=== PATIENT | female | born 1975 | race Caucasian/White ===

== ENCOUNTER 2017-01-09 07:42 | Emergency (ER) | payer MEDICAID ==
[2017-01-09] MEDS ORDERED: FAMOTIDINE 20 MG in NS 100 ML IV ONE (07:46)
[2017-01-09] MEDS ORDERED: HYDROmorphONE/DILAUDID 1 MG/ML SYR IVP ONE (07:46)
[2017-01-09 07:50] VITALS: RESP 18; TEMP 98
--- NOTE | 2017-01-09 07:51 | EDPHY ---
H & P Time Seen by Provider: 01/09/17 07:46 HPI/ROS: HPI Vomiting and diarrhea. 41-year-old female by private vehicle. This patient reports that since Thursday she has had nausea with vomiting and diarrhea. She reports multiple episodes of nonbilious, nonbloody vomiting. She has had watery diarrhea. No bloody or melenic stool. She denies any foreign travel. No camping. No change in diet. No ill contacts. She denies significant abdominal pain. She describes having crampy discomfort in her abdomen intermittently. ROS: Constitutional: No fever, no chills. No weakness. Eyes: No discharge. No changes in vision. ENT: No sore throat. No nasal congestion or rhinorrhea. Respiratory: No cough. No shortness of breath. Cardiac: No chest pain, no palpitations. Gastrointestinal: As above. Genitourinary: No hematuria. No dysuria or increased frequency with urination. Musculoskeletal: No back pain. No neck pain. No myalgias or arthralgias. Skin: No rashes. Neurological: No headache. No focal weakness or altered sensation. Past medical history: Fibromyalgia. Hypertension. Dr. Arriaga is her primary care physician. Social history: Nonsmoker. with children. Here by herself. No alcohol. Physical Exam: General Appearance: Alert, no distress. This patient is responding to questions appropriately and in full sentences. This patient appears well- hydrated and well-nourished. Eyes: Pupils equal and round no pallor or injection. No lid edema, erythema or injection. Respiratory: There are no retractions, lungs are clear to auscultation with good air movement bilaterally. Cardiovascular: Regular rate and rhythm. No murmur. Gastrointestinal: Abdomen is soft and nontender, no masses, bowel sounds normal. No focal tenderness at McBurney's point. No Hernandez sign. Neurological: Motor sensory function is grossly intact. Cranial nerves are normal. Gait is normal. Skin: Warm and dry, no rashes. Musculoskeletal: Neck is supple and nontender. Extremities are symmetrical. All joints range without pain or impingement. Psychiatric: No agitation. No depression. Database: EKG: Imaging: Procedures: Emergency department course: IV placed. She was started on IV normal saline with 1 L to be given over 1 hour. Vital signs reviewed. She was initially given 4 mg of IV Zofran and 20 mg of IV Pepcid. Patient has a benign abdomen. Her presentation is consistent with a viral or food-borne gastroenteritis. 8:35 a.m., patient re-evaluated. Resting comfortably at this time. She states she feels better. She still has some nausea. She was given an additional 4 mg of IV Zofran. 9:10 a.m., patient re-evaluated. Feeling better. Still has some nausea. She was given 6.25 mg of IV Phenergan. Hypokalemia discussed. She was given 20 mEq of IV potassium and started on a 2nd L of IV normal saline. 9:45 a.m., patient also had a small episode of watery diarrhea. She will be given 0.25 mg of IV hydromorphone. 10:20 a.m., patient re-evaluated. Resting comfortably at this time. Taking oral fluids without issue. No further diarrhea. She feels comfortable going home and I feel she is safe for discharge. She will be prescribed oral potassium supplement as well as Zofran for nausea. Repeat abdominal exam she is soft, nontender nondistended. Follow-up and return to emergency department precautions reviewed with her. All of her questions were answered. She was discharged in good condition with her who is driving. Differential Diagnosis: The differential diagnosis on this patient includes but is not limited to viral or food-borne gastroenteritis. Bowel obstruction, appendicitis, pancreatitis, cholecystitis, volvulus, other surgical etiology unlikely. This represents a partial list of diagnoses considered. These considerations are based on history , physical exam, past history, reassessment and diagnostic testing. Smoking Status: Former smoker Constitutional: Initial Vital Signs Temperature (C) 36.6 C 01/09/17 07:49 Heart Rate 102 H 01/09/17 07:49 Respiratory Rate 18 01/09/17 07:49 Blood Pressure 163/103 H 01/09/17 07:49 O2 Sat (%) 97 01/09/17 07:49 O2 Delivery Mode Room Air Allergies/Adverse Reactions: No Known Allergies Allergy (Verified 04/27/15 18:51) Home Medications: Medication Instructions Recorded Hydrochlorothiazide 05/24/11 Hydrocodone/APAP 5/325 [[place] 1 - 2 tab PO Q4PRN PRN #20 tab 03/04/15 5/325 (*)] Multivitamin 07/19/14 Ondansetron Odt [Zofran Odt 4 mg 4 mg PO Q4PRN PRN #10 tab 01/09/17 (*)] Potassium Chloride Po [Klor 20 meq PO QIDMEAL #16 pkt 01/09/17 Packets 20 meq (*)] Medical Decision Making - Data Points Laboratory Results: Laboratory Results 01/09/17 08:05 01/09/17 08:05 Sodium 140 mEq/L mEq/L (134-144) Potassium 2.9 mEq/L L mEq/L (3.5-5.2) Chloride 106 mEq/L mEq/L (97-110) Carbon Dioxide 24 mEq/l mEq/l (22-31) Anion Gap 10 mEq/L mEq/L (8-16) BUN 10 mg/dL mg/dL (7-23) Creatinine 0.6 mg/dL mg/dL (0.6-1.0) Estimated GFR > 60 Glucose 107 mg/dL H mg/dL (70-100) Calcium 9.1 mg/dL mg/dL (8.5-10.4) Medications Given: Potassium Phosphate 10 mmol/ (Dextrose) 253.3333 mls @ 42.222 mls/hr IV EDNOW ONE Stop: 01/09/17 15:07 Last Admin: 01/09/17 09:32 Dose: 253.3333 mls Discontinued Medications Hydromorphone HCl (Dilaudid) 0.25 mg IVP EDNOW ONE Stop: 01/09/17 07:47 Last Admin: 01/09/17 08:07 Dose: 0.25 mg Sodium Chloride (Ns) 1,000 mls @ 0 mls/hr IV EDNOW ONE; Wide Open PRN Reason: Protocol Stop: 01/09/17 07:47 Last Admin: 01/09/17 09:30 Dose: 1,000 mls Famotidine 20 mg/ Sodium (Chloride) 102 mls @ 408 mls/hr IV EDNOW ONE Stop: 01/09/17 08:00 Last Admin: 01/09/17 08:05 Dose: 102 mls Sodium Chloride (Ns) 1,000 mls @ 0 mls/hr IV ONCE ONE PRN Reason: Wide Open Stop: 01/09/17 09:08 Last Admin: 01/09/17 09:31 Dose: 1,000 mls Potassium Chloride (Potassium Cl 10 Meq (Premix)) 100 mls @ 100 mls/hr IV EDNOW ONE Stop: 01/09/17 10:09 Last Admin: 01/09/17 09:30 Dose: 100 mls Ondansetron HCl (Zofran) 4 mg IVP EDNOW ONE Stop: 01/09/17 07:47 Last Admin: 01/09/17 08:40 Dose: 4 mg Ondansetron HCl (Zofran) 4 mg IVP EDNOW ONE Stop: 01/09/17 08:37 Last Admin: 01/09/17 08:40 Dose: 4 mg Potassium Chloride (Potassium Chloride Oral Liquid) 20 meq PO EDNOW ONE Stop: 01/09/17 08:59 Last Admin: 01/09/17 09:46 Dose: Not Given Potassium Chloride (Potassium Chloride Oral Liquid) 20 meq PO EDNOW ONE Stop: 01/09/17 09:01 Last Admin: 01/09/17 09:49 Dose: Not Given Promethazine HCl (Phenergan) 6.25 mg IVP EDNOW ONE Stop: 01/09/17 09:23 Last Admin: 01/09/17 09:29 Dose: 6.25 mg Departure - Departure Disposition: Home, Routine, Self-Care Clinical Impression: Vomiting and diarrhea, Hypokalemia Condition: Good Instructions: Gastroenteritis (ED) Additional Instructions: Read and follow provided instructions. Follow-up with your primary care physician in on Thursday or Thursday of next week for re-evaluation and recheck of your potassium level. Take medication as prescribed for nausea and potassium replacement. Stay hydrated. Drink lots of fluids. A good fluid to drink is Gatorade mixed with water in a 1-1 dilution with ice. Return to the emergency department for vomiting and inability to keep fluids down despite medications, worsening abdominal pain, fever or other serious concerns. Referrals: Michelle Arriaga MD [Primary Care Provider] - As per Instructions Prescriptions: Ondansetron Odt [Zofran Odt 4 mg (*)] 4 mg PO Q4PRN PRN #10 tab PRN Reason: For Nausea & Vomiting Potassium Chloride Po [Klor Packets 20 meq (*)] 20 meq PO QIDMEAL #16 pkt
[2017-01-09] MEDS: NS 1,000 ML IV ONE ×2 (08:06→09:30)
[2017-01-09] MEDS: ONDANSETRON 4 MG/2 ML VIAL IVP ONE ×2 (08:06→08:40)
[2017-01-09] MEDS ORDERED: ONDANSETRON 4 MG/2 ML VIAL IVP ONE (08:36)
[2017-01-09 08:52] LABS: ANION GAP 10 mEq/L (8-16); CALCIUM 9.1 mg/dL (8.5-10.4); CARBON DIOXIDE 24 mEq/l (22-31); CHLORIDE 106 mEq/L (97-110); CREATININE 0.6 mg/dL (0.6-1.0); GLOMERULAR FILTRATION RATE > 60; GLUCOSE 107 mg/dL (70-100); POTASSIUM 2.9 mEq/L (3.5-5.2); SODIUM 140 mEq/L (134-144)
[2017-01-09] MEDS: POTASSIUM CL 20 MEQ/15 ML UDCUP PO ONE ×5 (09:04→09:49)
[2017-01-09] MEDS ORDERED: NS 1,000 ML IV ONE (09:07)
[2017-01-09] MEDS ORDERED: POTASSIUM Cl (KCl) 100 ML IV ONE ×2 (09:10)
[2017-01-09] MEDS ORDERED: PROMETHAZINE HCL 25 MG/ML INJ IVP ONE (09:22)
[2017-01-09] MEDS: K PHOS 10 MMOL in D5W 250 ML IV ONE ×2 (09:32→11:26)
[2017-01-09 10:29] VITALS: BP 130/62; PULSE 74; O2SAT 97
== END 2017-01-09 11:00 | disposition home or self-care (01) ==
LOC: CED 07:42
DX: E87.6 Hypokalemia (principal); I10 Essential (primary) hypertension; Z87.891 Personal history of nicotine dependence
CPT/HCPCS: 80048-PO; 96365; 96366; J1170; J2405; J2550

== ENCOUNTER 2017-09-26 21:22 | Emergency (ER) | payer MEDICAID ==
[2017-09-26] MEDS ORDERED: NS 1,000 ML IV ONE (21:54)
[2017-09-26] MEDS ORDERED: ONDANSETRON 4 MG/2 ML VIAL IVP ONE (21:54)
--- NOTE | 2017-09-26 22:11 | CPEKG ---
Heart Rate: 91 RR Interval: 659 P-R Interval: 180 QRSD Interval: 96 QT Interval: 380 QTC Interval: 468 P [place]: 52 QRS [place]: 97 T Wave [place]: 9 EKG Severity - BORDERLINE ECG - EKG Impression: SINUS RHYTHM EKG Impression: BORDERLINE RIGHT AXIS DEVIATION EKG Impression: BORDERLINE INFERIOR Q WAVES Electronically Signed By: Ramses Shea 28-Sep-2017 08:58:27
[2017-09-26 22:44] LABS: PLATELET COUNT 343 10^3/uL (150-400)
--- NOTE | 2017-09-26 22:48 | EDPHY ---
H & P Stated Complaint: Generalized unwell, nausea for 2 days. Time Seen by Provider: 09/26/17 21:29 HPI/ROS: 39-year-old female who takes hydrochlorothiazide for hypertension presents complaining nausea, no vomiting however occasional dry heaves, 3 episodes of diarrhea today and sensation of her heart racing. She states this has happened to her multiple times before and always turns out to be a low potassium for which she gets were placed and then takes potassium for several days and is fine for the next 6 months. She denies pain, no chest pain, no shortness of breath. Review of systems As per HPI General no fever no chills no weakness HEENT no eye pain no eye discharge. No eye redness, no sore throat Respiratory no cough, no shortness of breath Cardiac no chest pain, no peripheral edema, positive palpitations GI no abdominal pain, positive diarrhea, no constipation, positive nausea , no vomiting no flank pain, no hematuria, no dysuria Musculoskeletal no myalgias, no joint pain Heme no easy bruising, no easy bleeding Endo no polyuria, no polydipsia Skin no rashes, no pruritus Neuro no syncope, no dizziness, no headaches Psych is no suicidal ideation, no homicidal ideation Source: Patient Exam Limitations: No limitations - Personal History Current Tetanus/Diphtheria Vaccine: Unsure Current Tetanus Diphtheria and Acellular Pertussis (TDAP): Unsure - Medical/Surgical History Hx Asthma: No Hx Chronic Respiratory Disease: No Hx Diabetes: No Hx Cardiac Disease: Yes Hx Renal Disease: No Hx Cirrhosis: No Hx Alcoholism: No Hx HIV/AIDS: No Hx Splenectomy or Spleen Trauma: No Other PMH: TERRIE, FIBROMYALGIA, HYST, C-Sections x 2,HTN. - Family History Significant Family History: No pertinent family hx - Social History Smoking Status: Former smoker Alcohol Use: None Drug Use: None - Physical Exam Exam: 41-year-old female alert and oriented no acute distress nontoxic appearance afebrile HEENT atraumatic normocephalic, extraocular muscles intact, anicteric Oropharynx negative for erythema negative exudate, tolerating her own secretions Neck supple no meningismus Lungs clear to auscultation bilaterally Heart regular rate and rhythm without murmur rub or gallop Abdomen nondistended normoactive bowel sounds soft nontender Back no CVA tenderness, no step-offs, no spinal tenderness Extremities no cyanosis clubbing or edema Neuro alert and oriented, no focal deficits Constitutional: Initial Vital Signs Temperature (C) 36.6 C 09/26/17 21:37 Heart Rate 101 H 09/26/17 21:37 Respiratory Rate 16 09/26/17 21:37 Blood Pressure 143/98 H 09/26/17 21:37 O2 Sat (%) 96 09/26/17 21:37 O2 Delivery Mode Room Air Allergies/Adverse Reactions: No Known Allergies Allergy (Verified 09/26/17 21:36) Home Medications: Medication Instructions Recorded Hydrochlorothiazide 05/24/11 Hydrocodone/APAP 5/325 [[place] 1 - 2 tab PO Q4PRN PRN #20 tab 07/19/14 5/325 (*)] Multivitamin 07/19/14 Potassium Chloride 20 meq PO DAILY #22 tablet.er 09/26/17 Medical Decision Making ED Course/Re-evaluation: Patient seen and evaluated for multiple symptoms which she associates with low potassium and her laboratory did in fact show a potassium of 2.6 The she was given IV fluids and ondansetron 4 mg with marked relief of her nausea and was offered IV potassium given her low level which she refused the IV potassium and would prefer to take p.o. Potassium Impression Hypokalemia likely secondary to hydrochlorothiazide use Plan Potassium 40 mEq p.o. Now Potassium 40 mEq p.o. Three times daily x3 days A then potassium 20 mEq p.o. Twice daily x3 days An potassium 20 mEq p. O. Daily x1 week Follow-up with PCP for repeat potassium level in the next 1-2 weeks Differential Diagnosis: Differential diagnosis considered but not limited to Gastritis, diarrhea, enteritis, low potassium, high potassium, arrhythmia - Data Points Laboratory Results: Laboratory Results 09/26/17 22:35 09/26/17 22:35 09/26/17 09/26/17 22:35 22:35 WBC 7.75 10^3/uL 10^3/uL (3.80-9.50) RBC 5.14 10^6/uL 10^6/uL (4.18-5.33) Hgb 15.3 g/dL g/dL (12.6-16.3) Hct 42.3 % % (38.0-47.0) MCV 82.3 fL fL (81.5-99.8) MCH 29.8 pg pg (27.9-34.1) MCHC 36.2 g/dL g/dL (32.4-36.7) RDW 12.2 % % (11.5-15.2) Plt Count 343 10^3/uL 10^3/uL (150-400) MPV 9.6 fL fL (8.7-11.7) Neut % (Auto) 56.9 % % (39.3-74.2) Lymph % (Auto) 32.6 % % (15.0-45.0) [place] % (Auto) 8.0 % % (4.5-13.0) Eos % (Auto) 1.4 % % (0.6-7.6) Baso % (Auto) 0.8 % % (0.3-1.7) Nucleat RBC Rel Count 0.0 % % (0.0-0.2) Absolute Neuts (auto) 4.41 10^3/uL 10^3/uL (1.70-6.50) Absolute Lymphs (auto) 2.53 10^3/uL 10^3/uL (1.00-3.00) Absolute Monos (auto) 0.62 10^3/uL 10^3/uL (0.30-0.80) Absolute Eos (auto) 0.11 10^3/uL 10^3/uL (0.03-0.40) Absolute Basos (auto) 0.06 10^3/uL 10^3/uL (0.02-0.10) Absolute Nucleated RBC 0.00 10^3/uL 10^3/uL (0-0.01) Immature Gran % 0.3 % % (0.0-1.1) Immature Gran # 0.02 10^3/uL 10^3/uL (0.00-0.10) Sodium 136 mEq/L mEq/L (135-145) Potassium 2.6 mEq/L L* mEq/L (3.5-5.2) Chloride 98 mEq/L mEq/L (97-110) Carbon Dioxide 24 mEq/l mEq/l (22-31) Anion Gap 14 mEq/L mEq/L (8-16) BUN 11 mg/dL mg/dL (7-23) Creatinine 0.6 mg/dL mg/dL (0.6-1.0) Estimated GFR > 60 Glucose 122 mg/dL H mg/dL (70-100) Calcium 10.2 mg/dL mg/dL (8.5-10.4) TSH 4.820 uIU/mL H uIU/mL (0.465-4.680) Medications Given: Discontinued Medications Sodium Chloride (Ns) 1,000 mls @ 0 mls/hr IV ONCE ONE PRN Reason: Wide Open Stop: 09/26/17 21:55 Last Admin: 09/26/17 22:44 Dose: 1,000 mls Ondansetron HCl (Zofran) 4 mg IVP EDNOW ONE Stop: 09/26/17 21:55 Last Admin: 09/26/17 22:35 Dose: 4 mg Ondansetron HCl (Zofran Odt 4 Mg Prepack#2) 1 btl TAKEHOME EDNOW ONE Stop: 09/26/17 23:15 Last Admin: 09/26/17 23:25 Dose: 1 btl Potassium Chloride (Klor-Con) 40 meq PO ONCE ONE Stop: 09/26/17 23:11 Last Admin: 09/26/17 23:15 Dose: 40 meq Departure - Departure Disposition: Home, Routine, Self-Care Clinical Impression: Hypokalemia Condition: Good Instructions: Hypokalemia (ED) Referrals: Patient,NotPresent [Primary Care Provider] - As per Instructions Prescriptions: Potassium Chloride 20 meq PO DAILY #22 tablet.er
[2017-09-26] MEDS ORDERED: POTASSIUM Cl (KCl) 100 ML IV ONE (23:00)
[2017-09-26] MEDS ORDERED: POTASSIUM Cl (KCl) 10 MEQ/100 ML BAG IV ONE (23:07)
[2017-09-26] MEDS ORDERED: POTASSIUM CL 20 MEQ TAB PO ONE (23:10)
[2017-09-26] MEDS ORDERED: ONDANSETRON 4MG PREPACK#2 BTL TAKEHOME ONE (23:14)
[2017-09-26 23:53] VITALS: BP 144/100
== END 2017-09-26 23:50 | disposition home or self-care (01) ==
LOC: CED 21:22
DX: E87.6 Hypokalemia (principal); E86.9 Volume depletion, unspecified; I10 Essential (primary) hypertension; Z87.891 Personal history of nicotine dependence
CPT/HCPCS: 80048-PO; 84443-PO; 85025-PO; 96374; J2405; J3480

== ENCOUNTER 2017-11-08 20:55 | Emergency (ER) | payer MEDICAID ==
[2017-11-08] MEDS ORDERED: ONDANSETRON DISINTEGRATING 4 MG TAB PO ONE (21:16)
--- NOTE | 2017-11-08 21:21 | CPEKG ---
Heart Rate: 81 RR Interval: 741 P-R Interval: 184 QRSD Interval: 94 QT Interval: 380 QTC Interval: 441 P [place]: 56 QRS [place]: 56 T Wave [place]: 6 EKG Severity - BORDERLINE ECG - EKG Impression: SINUS RHYTHM EKG Impression: BORDERLINE T ABNORMALITIES, ANTERIOR LEADS Electronically Signed By: Dax Lizarraga 08-Nov-2017 23:03:40
--- NOTE | 2017-11-08 21:21 | EDPHY ---
H & P Stated Complaint: Bilateral arm/feet numbness/tingling x 3 hours with neck tightness. Time Seen by Provider: 11/08/17 21:03 HPI/ROS: This patient complains of bilateral hand and feet tingling extend into her arms and legs over the past few hours. She has had these symptoms intermittently since stopping hydrochlorothiazide starting clonidine 0.1 mg twice daily 2 weeks ago. The hydrochlorothiazide used to treat her hypertension was stopped due to recurrent episodes of hypokalemia while taking that medication. She had 4 episodes of hypokalemia that responded to oral potassium replacement over 1 week periods but given this issue medication change was made. She is concerned that she may have low potassium again as the symptoms are reminiscent of her prior episodes of hypokalemia. She also reports episode of lightheadedness intermittently over the past 2 weeks. Finally, she reports diarrhea 4 episodes a day also for the past 2 weeks. She had a headache described as right parietal and occipital that started this morning and was moderate intensity achy in nature associated with intermittent"blotchy vision". That headache resolved at 5:30 a.m. Tonight without intervention but it occasional"blotchy vision"persists when she looks at lytes. She had migraines as an adolescent but none since she was 17 years old. While she had some ocular symptoms with her migraines as a teen those ocular symptoms are different than the current "blotchy vision"per her report. She came in by private vehicle with her daughter for further evaluation of the symptoms tonight. ROS: Constitutional: No fevers or chills. No fatigue. HEENT: No URI symptoms. No tinnitus or change in her hearing. No head trauma recently. Pulmonary: No dyspnea. Neuro: She reports a in tingling but no sheyla numbness. No focal weakness. No confusion. Psychiatric: She admits some tearfulness when if she is off of her estradiol patches but denies any sheyla depressive send Tums and denies any anxiety this time. GI: She has had dry heaves today but not actual vomiting. She has persistent nausea. No bloody stools. No hematemesis. Abdominal pain. : No urinary symptoms. No flank pain. Integumentary: No skin rash. No diaphoresis. Complete review of symptoms otherwise negative. Source: Patient Exam Limitations: No limitations - Personal History LMP (Females 10-55): Post Menopausal Current Tetanus Diphtheria and Acellular Pertussis (TDAP): Yes - Medical/Surgical History Hx Asthma: No Hx Chronic Respiratory Disease: No Hx Diabetes: No Hx Cardiac Disease: Yes Hx Renal Disease: No Hx Cirrhosis: No Hx Alcoholism: No Hx HIV/AIDS: No Hx Splenectomy or Spleen Trauma: No Other PMH: TERRIE, FIBROMYALGIA, HYST, C-Sections x 2,HTN. - Family History Significant Family History: No pertinent family hx - Social History Smoking Status: Former smoker Alcohol Use: None Additional Social History: The patient was using able marijuana until 2 weeks ago when she stopped the marijuana. She is also not smoking marijuana using any other recreational drugs. No recent foreign travel. No recent fish ingestion. No other suspect food ingestion in terms of potential food poisoning. - Physical Exam Exam: General Appearance: Alert, no distress. Eyes: Pupils equal and round no pallor or injection. ENT, Mouth: Mucous membranes moist. Respiratory: There are no retractions, lungs are clear to auscultation. Cardiovascular: Regular rate and rhythm. No murmur gallop rub. No peripheral edema. Gastrointestinal: Abdomen is soft and nontender, no masses, bowel sounds normal. Neurological: GCS 15. Cranial nerves 2-12 intact. [place] sign is negative. She maintains normal light touch sensory exam throughout all extremities and 5/ 5 strength throughout all extremities. No focal deficits are appreciated. Skin: Warm and dry, no rashes. Musculoskeletal: Neck is supple nontender. Extremities are symmetrical, full range of motion. Psychiatric: Mood and affect are normal DIFFERENTIAL DIAGNOSIS: After history and physical exam differential diagnosis was considered for hyperkalemia, anxiety, medication side-effect, hyponatremia, migraine Constitutional: Initial Vital Signs Temperature (C) 36.6 C 11/08/17 21:04 Heart Rate 85 11/08/17 21:04 Respiratory Rate 18 11/08/17 21:04 Blood Pressure 133/104 H 11/08/17 21:04 O2 Sat (%) 98 11/08/17 21:04 O2 Delivery Mode Room Air Allergies/Adverse Reactions: No Known Allergies Allergy (Verified 11/08/17 21:02) Home Medications: Medication Instructions Recorded Ergocalciferol (Vitamin D2) 11/08/17 [Vitamin D2] Estradiol [Estraderm 0.05 MG] 11/08/17 Lisinopril 10 mg PO DAILY #30 tablet 11/08/17 Ondansetron Odt [Zofran Odt] 4 - 8 mg PO Q4PRN PRN #4 tab 11/08/17 Potassium Cl [Klor-Con 20 meq (*)] 40 meq PO TID #25 tab 11/08/17 Tumeric 11/08/17 clonIDINE [Catapres (*)] 11/08/17 Medical Decision Making - Diagnostics EKG Interpretation: 12 lead EKG performed at 9:19 p.m. Indication paresthesias, history of hypokalemia evaluate for evidence of hypokalemia 12 lead EKG at a sinus rhythm rate of 81 intervals: Normal throughout [place]: P of 56, QRS of 56, T of 6 ST segments notable for low T-wave amplitude particularly in the anterior leads consistent with hypokalemia. Overall assessment sinus rhythm with low T-wave amplitude consistent with hyperkalemia by my interpretation ED Course/Re-evaluation: Given the option of IV versus oral medications initially, patient prefers to have phlebotomy with oral medications. Zofran sublingual with resolution of nausea and vomiting. Phlebo. with basic met panel pending-met panel reveals a potassium 2.7. The rest of the basic metabolic panel is normal. Imodium for diarrhea p.o. Potassium 40 mEq p.o. After review of labs Met panel is normal except for a low potassium of 2.7. Counseled patient regarding this. She is given oral potassium 40 mEq p. O. With plan to replenish her potassium orally, control her diarrhea with Imodium, and decrease her clonidine dose in the evening initially while adding on lisinopril to help control blood pressure on lower clonidine dose. Her loose stools may be attributable in part to her current clonidine. I think that her diarrhea is the cause of her hypokalemia currently. While she has hyperkalemia, no dysrhythmia or palpitations. I think that she is safe for discharge home on oral potassium. Counseled patient regarding all this in some detail. Answered all her questions prior to discharge home. She will follow up with primary care physician for recheck BP and recheck potassium in 5-7 days. - Data Points Medications Given: Discontinued Medications Loperamide HCl ( Imodium) 4 mg PO EDNOW ONE Stop: 11/08/17 21:58 Last Admin: 11/08/17 22:00 Dose: 4 mg Ondansetron HCl (Zofran Odt) 8 mg PO EDNOW ONE Stop: 11/08/17 21:17 Last Admin: 11/08/17 21:26 Dose: 8 mg Potassium Chloride (Potassium Chloride Oral Liquid) 40 meq PO EDNOW ONE Stop: 11/08/17 21:48 Last Admin: 11/08/17 21:57 Dose: 40 meq Point of Care Test Results: Chemistry 11/08/17 21:32 POC Sodium 140 mEq/L mEq/L (135-145) POC Potassium 2.7 mEq/L L* mEq/L (3.3-5.0) POC Chloride 105.0 mEq/L mEq/L (97-110) POC Total CO2 23 mEq/L mEq/L (22-31) POC BUN 7 mg/dL mg/dL (7-23) POC Creatinine 0.8 mg/dL mg/dL (0.6-1.0) POC Glucose 113 mg/dL H mg/dL (70-100) POC Calcium 9.9 mg/dL mg/dL (8.5-10.4) Departure - Departure Disposition: Home, Routine, Self-Care Clinical Impression: Hypokalemia, Diarrhea, Hypertension Condition: Good Instructions: Lisinopril (By mouth), Potassium Chloride (By mouth), Hypokalemia (ED), Acute Diarrhea (ED) Additional Instructions: Diagnoses: 1. Hyperkalemia 2. Diarrhea 3. Hypertension Some of your symptoms may be attributable to the clonidine. Let us decrease her dose and starchy aunt additional antihypertensive medication. Plan: Take potassium as prescribed Cut year morning clonidine dosed is to 0 0.05-half of the 0.1 mg tablet. Continue the 0.1 mg tablet night for the next 5 days or so and then try cutting that down to half tablet as well. At the same time, start lisinopril 10 mg tabs daily. Take [id number] Imodium to help control diarrhea. Diarrhea can cause low potassium. Zofran if needed for nausea or vomiting. Follow-up with primary care physician for a recheck of blood pressure and potassium in 5 days or so Return emergency department for any significant worsening of symptoms despite treatment plan. Referrals: Michelle Arriaga MD [Primary Care Provider] - As per Instructions Prescriptions: Lisinopril 10 mg PO DAILY #30 tablet Ondansetron Odt [Zofran Odt] 4 - 8 mg PO Q4PRN PRN #4 tab PRN Reason: Vomiting Potassium Cl [Klor-Con 20 meq (*)] 40 meq PO TID #25 tab
[2017-11-08] MEDS ORDERED: POTASSIUM CL 20 MEQ/15 ML UDCUP PO ONE (21:47)
[2017-11-08] MEDS ORDERED: POTASSIUM CL 20 MEQ/15 ML UDCUP ONE (21:55)
[2017-11-08] MEDS ORDERED: LOPERAMIDE HCL 2 MG CAP PO ONE (21:57)
[2017-11-08 22:09] VITALS: BP 125/89
== END 2017-11-08 22:15 | disposition home or self-care (01) ==
LOC: CED 20:55
DX: E87.6 Hypokalemia (principal); I10 Essential (primary) hypertension; R19.7 Diarrhea, unspecified; Z87.891 Personal history of nicotine dependence
CPT/HCPCS: 80048-PO

== ENCOUNTER 2017-11-12 16:24 | Emergency (ER) | payer MEDICAID ==
--- NOTE | 2017-11-12 16:44 | CPEKG ---
Heart Rate: 105 RR Interval: 571 P-R Interval: 180 QRSD Interval: 82 QT Interval: 328 QTC Interval: 434 P [place]: 46 QRS [place]: 86 T Wave [place]: -6 EKG Severity - ABNORMAL ECG - EKG Impression: SINUS TACHYCARDIA EKG Impression: NONSPECIFIC T ABNORMALITIES, INFERIOR LEADS Electronically Signed By: Dax Lizarraga 12-Nov-2017 18:29:04
[2017-11-12] MEDS ORDERED: MAG HYDROX/AL HYDROX/SIMETH 30 ML UDCUP PO ONE (16:51)
[2017-11-12] MEDS ORDERED: ACETAMINOPHEN 500 MG TAB PO ONE (16:55)
--- NOTE | 2017-11-12 17:06 | EDPHY ---
H & P Stated Complaint: left arm jaw neck tingling Time Seen by Provider: 11/12/17 16:35 HPI/ROS: This patient presents with substernal chest pain achy in nature 8/10 intensity radiating to the left arm, onset after a nap at 3:05 p.m. Today and steady since. I saw her 4 days prior to this visit with hypokalemia-potassium of 2.7 attributable to diarrhea. Started her on aggressive oral potassium replacement with tablets. She reports that she took a 40 mEq dose after having soup and a glass of water shortly prior to lying down for a nap. She also notes that she has been belching a lot since starting the potassium replacement. She notes no other associated symptoms today except for nausea that responded well to a sublingual Zofran that she took -4 mg prior to arrival. No nausea currently. No exacerbating factors are noted for her chest pain. She does note associated right-sided headache similar to previous headaches throbbing in nature and 6/10 intensity. She is anxious from the symptoms and a bit tearful on arrival. She has associated paresthesias in bilateral legs and arms. The patient reports compliance with the potassium replacement plan as well as change in medications- we decreased her evening clonidine dose 2.0 5 mg. She continues 0.1 mg in the morning. I added lisinopril 10 mg which she has been taking and she reports good blood pressure control 120s over 70s until today when she checked at home with her new symptoms of chest pain-155/119. She takes the lisinopril dose in the evening. She made an appointment to see her primary care physician for follow-up for next Thursday -8 days from now. Her daughter drove her in by private vehicle for evaluation. ROS: Constitutional: No fevers or generalized fatigue. HEENT: No URI symptoms or other complaints Neuro: Right-sided headache as per HPI. No visual changes. No focal numbness or weakness. Pulmonary: No dyspnea. No coughing Cardiovascular: No heart palpitations or lightheadedness. No leg swelling or calf pain. GI: Nausea but no vomiting. Increased belching this week. She has persistent diarrhea 3 or 4 episodes a day. She is using Imodium periodically with slight improvement. : No urinary symptoms or flank pain. No hematuria. Integumentary: No diaphoresis or rash. Endocrine: No complaints new line completely symptoms otherwise negative. Source: Patient Exam Limitations: No limitations - Personal History LMP (Females 10-55): Hysterectomy Current Tetanus Diphtheria and Acellular Pertussis (TDAP): Yes - Medical/Surgical History PMH: Essential hypertension Hx Asthma: No Hx Chronic Respiratory Disease: No Hx Diabetes: No Hx Cardiac Disease: Yes Hx Renal Disease: No Hx Cirrhosis: No Hx Alcoholism: No Hx HIV/AIDS: No Hx Splenectomy or Spleen Trauma: No Other PMH: TERRIE, FIBROMYALGIA, HYST, C-Sections x 2,HTN - Family History Significant Family History: Other (Her father of an intracranial aneurysm at age 47) - Social History Smoking Status: Former smoker Alcohol Use: None Drug Use: None - Physical Exam Exam: General Appearance: Alert, no distress. Eyes: Pupils equal and round no pallor or injection. ENT, Mouth: Mucous membranes moist. Respiratory: There are no retractions, lungs are clear to auscultation. Cardiovascular: Tachycardic with no murmur gallop rub. No leg edema or tenderness. Gastrointestinal: Abdomen is soft and nontender, no masses, bowel sounds normal. Neurological: GCS 15. No focal deficits. Skin: Warm and dry, no rashes. Musculoskeletal: Neck is supple nontender. Extremities are symmetrical, full range of motion. Psychiatric: Mood and affect are normal DIFFERENTIAL DIAGNOSIS: After history and physical exam differential diagnosis was considered for esophagitis, GERD, esophageal spasm, doubt cardiac ischemic disease. Doubt PE. Pneumothorax, pneumonia Constitutional: Initial Vital Signs Temperature (C) 36.8 C 11/12/17 16:30 Heart Rate 111 H 11/12/17 16:30 Respiratory Rate 16 11/12/17 16:30 Blood Pressure 141/111 H 11/12/17 16:30 O2 Sat (%) 99 11/12/17 16:30 O2 Delivery Mode Room Air Allergies/Adverse Reactions: No Known Allergies Allergy (Verified 11/12/17 16:33) Home Medications: Medication Instructions Recorded Ergocalciferol (Vitamin D2) 11/08/17 [Vitamin D2] Estradiol [Estraderm 0.05 MG] 11/08/17 Lisinopril 10 mg PO DAILY #30 tablet 11/08/17 Ondansetron Odt [Zofran Odt] 4 - 8 mg PO Q4PRN PRN #4 tab 11/08/17 Potassium Cl [Klor-Con 20 meq (*)] 40 meq PO TID #25 tab 11/08/17 Tumeric 11/08/17 clonIDINE [Catapres (*)] 11/08/17 Famotidine [Pepcid] 40 mg PO DAILY #14 tablet 11/12/17 Potassium Chloride Po [Potassium 40 meq PO BID #19 udcup 11/12/17 Chloride 20 mg/15 ml (*)] Medical Decision Making - Diagnostics EKG Interpretation: 12 lead EKG performed at 4:42 p.m. Indication chest pain and history of hyperkalemia rule out ischemic cardiac disease or evidence of hyperkalemia Sinus tachycardia 105 Intervals: Normal throughout [place]: Normal throughout ST segments: Flat T-wave in AVF and isolated T inversion in V3-no significant change from prior EKG dated 11/08/2017 by my interpretation Overall assessment sinus tachycardia with nonspecific T-wave abnormalities Imaging Results: Imaging Impressions Chest X-Ray 11/12/17 17:08 Impression: Negative chest. Two view chest x-ray: Normal by my interpretation Imaging: I viewed and interpreted images myself ED Course/Re-evaluation: Monitor, Maalox p.o. Tylenol for headache Levsin sublingual for possible esophageal spasm labs drawn and sent At 5:45 p.m. The patient reports that her chest pain is nearly resolved down to 1 or 2/10. She feels improved. She is drinking p.o. Water and resting comfortably. She has no dyspnea, no pleuritic pain and feels well. Studies: Basic metabolic panel reveals mildly low bicarb at 18. Potassium today is normal 4.1 as are the rest of the electrolytes, BUN and creatinine. Troponin is normal. Recheck blood pressure-120s over 90s Discussion: This patient presents with chest pain in the setting of taking large oral potassium doses by solid pills. She took 1 of these doses shortly prior to laying down for a nap. She has noticed increased belching since starting this regimen and I suspect that she had an element of gastritis, reflux potential esophagitis or esophageal spasm that caused her symptoms today. She has had near complete resolution of her symptoms with Maalox and Levsin. No red flag findings that would suggest cardiac ischemia, pulmonary embolism or other symptoms. Will plan to the switch her from potassium solid tabs to liquid potassium. Given persistent findings an EKG that suggest subtle hypokalemic findings as suspect she still low and intracellular potassium in her body counseled regarding this. That she warrants completing the potassium supplementation. She still has diarrhea that may be attributable in part to the clonidine. Will further decrease her dose to half tablet 2 times a day with plan to increase her lisinopril started 4 days ago to 20 mg a day. Will also place her on Pepcid and Maalox. She will follow up with primary care physician for further evaluation. She understands need to return emergency department should she develop worsening of symptoms despite the treatment plan - Data Points Laboratory Results: 11/12/17 11/12/17 17:09 16:58 POC Sodium 141 mEq/L mEq/L (135-145) POC Potassium 4.1 mEq/L mEq/L (3.3-5.0) POC Chloride 106.0 mEq/L mEq/L (97-110) POC Total CO2 18 mEq/L L mEq/L (22-31) POC BUN 9 mg/dL mg/dL (7-23) POC Creatinine 0.9 mg/dL mg/dL (0.6-1.0) POC Glucose 125 mg/dL H mg/dL (70-100) POC Calcium 10.6 mg/dL H mg/dL (8.5-10.4) POC Troponin I 0.00 ng/mL ng/mL (0.00-0.08) Medications Given: Discontinued Medications Acetaminophen (Tylenol) 1,000 mg PO EDNOW ONE Stop: 11/12/17 16:56 Last Admin: 11/12/17 17:03 Dose: 1,000 mg Al Hydroxide/Mg Hydroxide (Maalox Susp) 30 ml PO EDNOW ONE Stop: 11/12/17 16:52 Last Admin: 11/12/17 17:02 Dose: 30 ml Hyoscyamine Sulfate (Levsin, Hyomax-Sl) 0.125 mg PO EDNOW ONE Stop: 11/12/17 17:11 Last Admin: 11/12/17 17:26 Dose: 0.125 mg Point of Care Test Results: Chemistry 11/12/17 11/12/17 17:09 16:58 POC Sodium 141 mEq/L mEq/L (135-145) POC Potassium 4.1 mEq/L mEq/L (3.3-5.0) POC Chloride 106.0 mEq/L mEq/L (97-110) POC Total CO2 18 mEq/L L mEq/L (22-31) POC BUN 9 mg/dL mg/dL (7-23) POC Creatinine 0.9 mg/dL mg/dL (0.6-1.0) POC Glucose 125 mg/dL H mg/dL (70-100) POC Calcium 10.6 mg/dL H mg/dL (8.5-10.4) POC Troponin I 0.00 ng/mL ng/mL (0.00-0.08) Departure - Departure Disposition: Home, Routine, Self-Care Clinical Impression: Chest pain Qualifiers: Chest pain type: unspecified Qualified Code(s): R07.9 - Chest pain, unspecified Hypertension Qualifiers: Hypertension type: essential hypertension Qualified Code(s): I10 - Essential ( primary) hypertension Condition: Fair Instructions: Chest Pain (ED), Gastroesophageal Reflux Disease (ED) Additional Instructions: Diagnosis: Chest pain Intake it is likely that the oral potassium pills were causing some irritation in your stomach and esophagus and that he may have had a esophageal spasm causing her pain today. Your EKG and heart enzyme showed no significant abnormalities today and her current circulating potassium level is normal that he still warrant further potassium treatment to build up the potassium inside or cells in her body. Plan: Switch from the potassium pills to the liquid potassium as prescribed. Increase your lisinopril dose to 20 mg in the evening. Decreased you're clonidine dose to half tab-0.05 mg 2 times a day Start Pepcid and acid as prescribed for the next couple weeks. Have a bland diet until symptoms improve Eat food prior to the potassium and then drink water after the potassium Use Maalox in addition if needed if he developed upper belly or chest pain. Return emergency department for any significant worsening despite the treatment plan, follow up with primary care physician for recheck sometime within the next week if possible. Referrals: Eriberto Maier MD [Primary Care Provider] - As per Instructions Prescriptions: Famotidine [Pepcid] 40 mg PO DAILY #14 tablet Potassium Chloride Po [Potassium Chloride 20 mg/15 ml (*)] 40 meq PO BID #19 udcup
[2017-11-12] MEDS ORDERED: HYOSCYAMINE SULFATE 0.125 MG TAB PO ONE (17:10)
--- NOTE | 2017-11-12 17:19 | CPEKG ---
Heart Rate: 78 RR Interval: 769 P-R Interval: 136 QRSD Interval: 80 QT Interval: 380 QTC Interval: 433 P [place]: 76 QRS [place]: 16 T Wave [place]: 28 EKG Severity - BORDERLINE ECG - EKG Impression: SINUS RHYTHM EKG Impression: TALL R WAVE IN V2, CONSIDER RVH OR PMI Electronically Signed By: Akil Dean 13-Nov-2017 08:45:56
[2017-11-12 18:19] VITALS: BP 122/85
== END 2017-11-12 18:19 | disposition home or self-care (01) ==
LOC: CED 16:24
DX: R07.9 Chest pain, unspecified (principal); I10 Essential (primary) hypertension; Z87.891 Personal history of nicotine dependence
CPT/HCPCS: 71046-PO; 80048-PO; 84484-PO

== ENCOUNTER 2018-08-18 07:37 | Emergency (ER) | payer MEDICAID ==
[2018-08-18] MEDS ORDERED: ONDANSETRON 4 MG/2 ML VIAL IVP ONE (08:02)
[2018-08-18] MEDS ORDERED: NS 1,000 ML IV ONE ×2 (08:02→09:20)
[2018-08-18] MEDS ORDERED: KETOROLAC 30 MG/1 ML SDV IVP ONE (08:05)
--- NOTE | 2018-08-18 08:05 | EDPHY ---
H & P Stated Complaint: Vomiting since 1500 yest , every 1.5h Time Seen by Provider: 08/18/18 07:58 HPI/ROS: CHIEF COMPLAINT: Nausea vomiting HISTORY OF PRESENT ILLNESS: The patient is a 42-year-old female with history of fibromyalgia, hysterectomy and cholecystectomy who comes to the emergency department complaining of nausea vomiting and abdominal cramping that began yesterday evening. She correlates the onset of her symptoms with her nephew using there smoker to smoke meat. She states that it was more smoky than usual. It is outdoors. No on else felt sick. The carbon monoxide detector did not alarm. The she has been vomiting every hour since then. No diarrhea. No fever. No rash. No chest pain or difficulty breathing. She states that her vomit is nonbloody and smells like smoke. No back pain or CVA pain. No dysuria or hematuria. Severity: Moderate Modifying factors: None, she has not taken any medication REVIEW OF SYSTEMS: Constitutional: denies: chills, fever, recent illness, recent injury EENTM: denies: blurred vision, double vision, nose congestion Respiratory: denies: cough, shortness of breath Cardiac: denies: chest pain, irregular heart rate, lightheadedness, palpitations Gastrointestinal/Abdominal: See HPI Genitourinary: denies: dysuria, frequency, hematuria, pain Musculoskeletal: denies: joint pain, muscle pain Skin: denies: lesions, rash, jaundice, bruising Neurological: denies: headache, numbness, paresthesia, tingling, dizziness, weakness Hematologic/Lymphatic: denies: blood clots, easy bleeding, easy bruising Immunologic/allergic: denies: HIV/AIDS, transplant 10 systems reviewed and negative except as noted EXAM: GENERAL: Well-appearing, well-nourished and in no acute distress. HEAD: Atraumatic, normocephalic. EYES: Pupils equal round and reactive to light, extraocular movements intact, sclera anicteric, conjunctiva are normal. ENT: TMs normal, nares patent, oropharynx clear without exudates. Moist mucous membranes. NECK: Normal range of motion, supple without lymphadenopathy or JVD. LUNGS: Breath sounds clear to auscultation bilaterally and equal. No wheezes rales or rhonchi. HEART: Regular rate and rhythm without murmurs, rubs or gallops. ABDOMEN: Soft, nontender, normoactive bowel sounds. No guarding, no rebound. No masses appreciated. BACK: No CVA tenderness, no spinal tenderness, step-offs or deformities EXTREMITIES: Normal range of motion, no pitting or edema. No clubbing or cyanosis. NEUROLOGICAL: Cranial nerves II through XII grossly intact. Normal speech, normal gait. 5/5 strength, normal movement in all extremities, normal sensation , normal reflexes PSYCH: Normal mood, normal affect. SKIN: Warm, dry, normal turgor, no visible rashes or lesions. Source: Patient Exam Limitations: No limitations - Personal History LMP (Females 10-55): Hysterectomy Current Tetanus/Diphtheria Vaccine: Unsure Current Tetanus Diphtheria and Acellular Pertussis (TDAP): Unsure - Medical/Surgical History Hx Asthma: No Hx Chronic Respiratory Disease: No Hx Diabetes: No Hx Cardiac Disease: No Hx Renal Disease: No Hx Cirrhosis: No Hx Alcoholism: No Hx HIV/AIDS: No Hx Splenectomy or Spleen Trauma: No Other PMH: TERRIE, FIBROMYALGIA, HYST, C-Sections x 2,HTN - Family History Significant Family History: No pertinent family hx - Social History Smoking Status: Former smoker Alcohol Use: None Drug Use: Marijuana Constitutional: Initial Vital Signs Temperature (C) 37 C 08/18/18 07:44 Heart Rate 99 08/18/18 07:44 Respiratory Rate 16 08/18/18 07:44 Blood Pressure 161/85 H 08/18/18 07:44 O2 Sat (%) 99 08/18/18 07:44 O2 Delivery Mode Room Air Allergies/Adverse Reactions: No Known Allergies Allergy (Verified 08/18/18 07:43) Home Medications: Medication Instructions Recorded Ergocalciferol (Vitamin D2) 11/08/17 [Vitamin D2] Estradiol [Estraderm 0.05 MG] 11/08/17 Lisinopril 10 mg PO DAILY #30 tablet 11/08/17 Tumeric 11/08/17 Hydrocodone-Acetamin 5-325 mg 08/18/18 Metoclopramide [Reglan 10 mg tab 10 mg PO BID PRN 7 Days tab 08/18/18 (RX)] Medical Decision Making - Diagnostics EKG Interpretation: An EKG obtained and was read and documented in trace view. Please see trace view for full reading and report. Sinus rhythm, unchanged from previous ED Course/Re-evaluation: 9:20 a.m. The patient is feeling much better. She states that her symptoms were gone but no are starting to return slightly. We will continue with the 2nd L of IV fluids and treat with Reglan. Lab work is all very reassuring. Urinalysis shows symptoms of dehydration. 10:00 a.m. the patient is feeling much better. She is tolerating p. O.. She is asking to be discharged. Her abdominal exam remains benign. Will prescribe Reglan. Declines further workup or testing. Discussed indications for returning. Differential Diagnosis: Partial list of the Differential diagnosis considered include but were not limited to; gastroenteritis, food poisoning and although unlikely based on the history and physical exam, I also considered carbon monoxide exposure, acute coronary disease, influenza. I discussed these differential diagnoses and the plan with the patient as well as the usual and expected course. The patient understands that the diagnosis is provisional and that in medicine we are not always correct and that further workup is often warranted. Usual and customary warnings were given. All of the patient's questions were answered. The patient was instructed to return to the emergency department should the symptoms at all worsen or return, otherwise to followup with the physician as we discussed. - Data Points Medications Given: Discontinued Medications Sodium Chloride (Ns) 1,000 mls @ 0 mls/hr IV EDNOW ONE; Wide Open PRN Reason: Protocol Stop: 08/18/18 08:03 Last Admin: 08/18/18 08:31 Dose: 1,000 mls Sodium Chloride (Ns) 1,000 mls @ 0 mls/hr IV EDNOW ONE; Wide Open PRN Reason: Protocol Stop: 08/18/18 09:21 Last Admin: 08/18/18 09:26 Dose: 1,000 mls Ketorolac Tromethamine (Toradol) 15 mg IVP EDNOW ONE Stop: 08/18/18 08:06 Last Admin: 08/18/18 08:35 Dose: 15 mg Metoclopramide HCl (Reglan Injection) 10 mg IVP EDNOW ONE Stop: 08/18/18 09:21 Last Admin: 08/18/18 09:26 Dose: 10 mg Ondansetron HCl (Zofran) 4 mg IVP EDNOW ONE Stop: 08/18/18 08:03 Last Admin: 08/18/18 08:33 Dose: 4 mg Point of Care Test Results: CBC CBC Collection Date 08/18/18 CBC Collection Time 08:25 WBC 6.88 RBC 5.19 HGB 15.4 HCT 44.9 PLT 323 Neut # 5.32 Neut 77.3 LYMPH # 1.21 LYMPH 17.6 MCV 86.5 Chemistry 08/18/18 08:31 POC Sodium 144 mEq/L mEq/L (135-145) POC Potassium 3.7 mEq/L mEq/L (3.3-5.0) POC Chloride 108.0 mEq/L mEq/L (97-110) POC Total CO2 22 mEq/L mEq/L (22-31) POC BUN 7 mg/dL mg/dL (7-23) POC Creatinine 0.7 mg/dL mg/dL (0.6-1.0) POC Glucose 119 mg/dL H mg/dL (70-100) POC Calcium 9.8 mg/dL mg/dL (8.5-10.4) POC Total Bilirubin 0.8 mg/dL mg/dL (0.1-1.4) POC AST 29 IU/L IU/L (14-46) POC ALT 26 IU/L IU/L (9-52) POC Alk Phosphatase 88 IU/L IU/L (38-126) POC Total Protein 7.5 g/dL g/dL (6.3-8.2) POC Albumin 4.3 g/dL g/dL (3.5-5.0) Urine Dip Collection Date 08/18/18 Collection Time 07:[address] [place] (1.002-1.030) 1.025 PH (5.0-7.5) 6.0 Leukocytes (Negative) Negative Nitrites (Negative) Negative Protein (Negative) Negative Glucose (Negative) Negative Ketones (Negative) Trace Urobilnogen (0.2-1.0 EU) 0.2 Bilirubin (Negative) Negative Blood (Negative) 1+ Departure - Departure Disposition: Home, Routine, Self-Care Clinical Impression: Dehydration Vomiting Qualifiers: Vomiting type: unspecified Vomiting Intractability: unspecified Nausea presence : with nausea Qualified Code(s): R11.2 - Nausea with vomiting, unspecified Condition: Fair Instructions: Acute Nausea and Vomiting (ED) Referrals: Eriberto Maier MD [Primary Care Provider] - As per Instructions Prescriptions: Metoclopramide [Reglan 10 mg tab (RX)] 10 mg PO BID PRN 7 Days tab PRN Reason: *Nausea & Vomiting
--- NOTE | 2018-08-18 08:21 | CPEKG ---
Test Reason : OPEN Blood Pressure : / mmHG Vent. Rate : 074 BPM Atrial Rate : 075 BPM P-R Int : 186 ms QRS Dur : 092 ms QT Int : 364 ms P-R-T Axes : 049 027 006 degrees QTc Int : 404 ms Sinus rhythm Borderline T abnormalities, anterior leads Confirmed by Jillian Hung ([id number]) on 08/18/2018 8:20:33 AM Referred By: JILLIAN HUNG Confirmed By:Jillian Hung
[2018-08-18] MEDS ORDERED: METOCLOPRAMIDE 10 MG/2 ML VIAL IVP ONE (09:20)
[2018-08-18 10:32] VITALS: BP 111/80
== END 2018-08-18 10:45 | disposition home or self-care (01) ==
LOC: CED 07:37
DX: R11.2 Nausea with vomiting, unspecified (principal); E86.0 Dehydration
CPT/HCPCS: 80053-ER; 85025-QW-ER; 96361-ER; 96374-ER; 96375-ER; 99284-ER; J1885; J2405; J2765